=== PATIENT | female | born 1995 | race Caucasian/White ===

== ENCOUNTER → 2016-09-16 | Outpatient (CLI) | payer OTHER ==
[~2016-09-16] MED LIST: ALBU18002 INH; BCPILLS PO; NAPR1TAB9 PO; OXYC-57 PO
--- NOTE | 2016-09-16 15:37 | DIAGNOSTIC IMAGING REPORT ---
CHEST 2 VIEWS ROUTINE CLINICAL HISTORY: Blood-tinged sputum. COMPARISON STUDY: No previous studies for comparison. FINDINGS: Lung volumes are normal. Lungs are clear. There is no pneumothorax or pleural effusion. Cardiac size is normal. Mediastinal contours are normal. There is no evidence of pulmonary edema. There are cholecystectomy clips. IMPRESSION: No acute cardiopulmonary findings. Electronically signed by: Ian Purcell M.D. 09/16/2016 3:35 PM Dictated Date/Time: 09/16/2016 3:35 PM
== END | disposition home or self-care (01) ==
LOC: C.RADBC 15:07
PROVIDERS: ATTEND Internal Medicine Geriatric Medicine
DX: R04.2 Hemoptysis (principal)

== ENCOUNTER → 2017-04-26 | Outpatient (CLI) | payer OTHER ==
[~2017-04-26] MED LIST changes: -OXYC-57 PO
[2017-04-26 15:08] LABS: BASO % 0.2 %; BASO ABS # 0.02 K/uL (0-0.2); COMPLETE YES; EOS % 1.7 %; HEMATOCRIT 40.2 % (37-47); IG% 0.3 %; LYMPH % 25.2 %; LYMPH ABS # 2.38 K/uL (1.2-3.4); MEAN CELL VOLUME 83.6 fL (80-100); MEAN CORPUSCULAR HEMOGLOBIN 29.5 pg (25-34); MEAN CORPUSCULAR HGB CONC 35.3 g/dl (32-36); MEAN PLATELET VOLUME 11.4 fL (7.4-10.4); MONO % 6.3 %; NEUT % 66.3 %; PLATELET COUNT 240 K/uL (130-400); RED BLOOD COUNT 4.81 M/uL (4.2-5.4); WHITE BLOOD COUNT 9.43 K/uL (4.8-10.8)
== END | disposition home or self-care (01) ==
LOC: C.LAB1850 14:24
PROVIDERS: ATTEND Physician Assistant
DX: Z33.1 Pregnant state, incidental (principal)

== ENCOUNTER → 2017-05-21 | Outpatient (CLI) | payer OTHER ==
[2017-05-21 13:10] LABS: BASO % 0.1 %; BASO ABS # 0.01 K/uL (0-0.2); COMPLETE YES; EOS % 1.4 %; HEMATOCRIT 36.7 % (37-47); IG% 0.3 %; LYMPH % 25.4 %; LYMPH ABS # 1.87 K/uL (1.2-3.4); MEAN CELL VOLUME 81.6 fL (80-100); MEAN CORPUSCULAR HEMOGLOBIN 28.9 pg (25-34); MEAN CORPUSCULAR HGB CONC 35.4 g/dl (32-36); MEAN PLATELET VOLUME 11.2 fL (7.4-10.4); MONO % 6.8 %; PLATELET COUNT 230 K/uL (130-400); WHITE BLOOD COUNT 7.36 K/uL (4.8-10.8)
[2017-05-21 17:24] LABS: URINE APPEARANCE CLEAR (CLEAR); URINE BILIRUBIN NEG (NEG); URINE COLOR YELLOW; URINE EPITHELIAL CELL AUTO >30 /lpf (0-5); URINE NITRITE NEG (NEG); URINE SPECIFIC GRAVITY 1.019 (1.000-1.030); UROBILINOGEN NEG (NEG)
[2017-05-21 17:29] LABS: MANUAL MICROSCOPIC REQUIRED? NO; REVIEW REQ? NO
[2017-05-25 02:26] LABS: CHLAMYDIA TRACH RNA*** NOT DETECTED (NOT DETECTED); GC (NEIS GONORRHOEAE)RNA** NOT DETECTED (NOT DETECTED)
== END | disposition home or self-care (01) ==
LOC: C.LAB1850 12:27
PROVIDERS: ATTEND Obstetrics & Gynecology
DX: Z34.01 Encounter for supervision of normal first pregnancy, first trimester (principal)

== ENCOUNTER → 2017-06-28 | Outpatient (CLI) | payer OTHER ==
[2017-06-28 13:55] LABS: GTGD 50 Grams
== END | disposition home or self-care (01) ==
LOC: C.LAB1850 10:22
PROVIDERS: ATTEND Obstetrics & Gynecology
DX: Z34.02 Encounter for supervision of normal first pregnancy, second trimester (principal)

== ENCOUNTER → 2017-07-30 | Outpatient (CLI) | payer OTHER ==
[~2017-07-30] MED LIST changes: +PRENTAB26 PO
== END | disposition home or self-care (01) ==
LOC: C.LAB1850 15:16
PROVIDERS: ATTEND Obstetrics & Gynecology
DX: Z34.02 Encounter for supervision of normal first pregnancy, second trimester (principal)

== ENCOUNTER → 2017-09-20 | Outpatient (CLI) | payer OTHER ==
[~2017-09-20] MED LIST changes: -PRENTAB26 PO
[2017-09-20 12:12] LABS: HEMOGLOBIN 12.8 g/dL (12.0-16.0)
== END | disposition home or self-care (01) ==
LOC: C.LAB1850 09:29
PROVIDERS: ATTEND Obstetrics & Gynecology
DX: Z34.03 Encounter for supervision of normal first pregnancy, third trimester (principal)

== ENCOUNTER → 2017-10-01 | Outpatient (CLI) | payer OTHER | END | disposition home or self-care (01) | LOC: C.LAB1850 07:03 | PROVIDERS: ATTEND Obstetrics & Gynecology | DX: O28.1 Abnormal biochemical finding on antenatal screening of mother (principal) ==

== ENCOUNTER 2017-11-19 21:31 | Outpatient (CLI) | payer OTHER ==
[~2017-11-19] VITALS: Ht 162.6 cm; Wt 180.3 kg
[2017-11-19] MEDS ORDERED: ACETAMINOPHEN 325 MG TAB PO PRN (22:15)
[2017-11-19 22:32] VITALS: Ht 162.6 cm; Wt 180.3 kg
[2017-11-19] MEDS ORDERED: PRENTAB26 PO (22:32)
[2017-11-19 22:41] LABS: BASO % 0.1 %; BASO ABS # 0.01 K/uL (0-0.2); EOS ABS # 0.08 K/uL (0-0.5); HEMATOCRIT 37.9 % (37-47); HEMOGLOBIN 13.3 g/dL (12.0-16.0); IG# 0.02 K/uL (0.00-0.02); LYMPH % 29.2 %; LYMPH ABS # 2.24 K/uL (1.2-3.4); MEAN CELL VOLUME 82.2 fL (80-100); MEAN CORPUSCULAR HEMOGLOBIN 28.9 pg (25-34); MEAN CORPUSCULAR HGB CONC 35.1 g/dl (32-36); MEAN PLATELET VOLUME 11.4 fL (7.4-10.4); MONO % 7.4 %; MONO ABS # 0.57 K/uL (0.11-0.59); NEUT ABS # 4.74 K/uL (1.4-6.5); PLATELET COUNT 138 K/uL (130-400); RED CELL DISTRIBUTION WIDTH CV 14.5 % (11.5-14.5); WHITE BLOOD COUNT 7.66 K/uL (4.8-10.8)
[2017-11-19 22:59] LABS: ALBUMIN 2.6 gm/dl (3.4-5.0); CALCIUM 9.3 mg/dl (8.5-10.1); CREATININE 0.7 mg/dl (0.60-1.20); POTASSIUM 4.1 mmol/L (3.5-5.1)
[2017-11-19 23:01] LABS: TOTAL PROTEIN 6.2 gm/dl (6.4-8.2)
--- NOTE | 2017-12-02 08:14 | EDITING REQUIRED CODING QUERY ---
DIAGNOSIS NEEDED To promote full compliance with coding requirements relating to patient care, physician participation is requested in all cases of coal hiker uncertainty. Please assist us with the question(s) below: Coding Question: The patient received care in labor and delivery on 11/19/17 as noted within the record. Please document the diagnosis that is being addressed by the medication/treatment. Provider Response: DIAGNOSIS: 36 WEEKS IUP, GESTATIONAL HYPERTENSION WEEKS OF GESTATION: 36 Thank you for your assistance, Brenda Brown - [employer]
== END 2017-11-19 23:25 | disposition home or self-care (01) ==
LOC: C.OPB 21:31 → C.LD 21:32 → C.OPB 23:25
PROVIDERS: ATTEND Obstetrics & Gynecology
DX: O13.3 Gestational [pregnancy-induced] hypertension without significant proteinuria, third trimester (principal); Z3A.36 36 weeks gestation of pregnancy

== ENCOUNTER → 2017-11-23 | Outpatient (CLI) | payer OTHER ==
[~2017-11-23] MED LIST changes: -BCPILLS PO; -NAPR1TAB9 PO; +PRENTAB26 PO
== END | disposition home or self-care (01) ==
LOC: C.LABSPEC 11:04
PROVIDERS: ATTEND Obstetrics & Gynecology
DX: Z34.03 Encounter for supervision of normal first pregnancy, third trimester (principal)

== ENCOUNTER 2017-11-24 10:21 | Outpatient (CLI) | payer OTHER ==
[~2017-11-24] VITALS: Ht 162.6 cm; Wt 69.5 kg
[2017-11-24 11:04] LABS: MEAN CORPUSCULAR HGB CONC 35.5 g/dl (32-36); MEAN PLATELET VOLUME 12.9 fL (7.4-10.4); PLATELET COUNT 147 K/uL (130-400)
[2017-11-24 11:20] VITALS: Ht 162.6 cm; Wt 69.5 kg
[2017-11-24 11:35] LABS: ALBUMIN 2.6 gm/dl (3.4-5.0); CREATININE 0.68 mg/dl (0.60-1.20); TOTAL PROTEIN 6.8 gm/dl (6.4-8.2)
[2017-11-24 11:47] LABS: HEMATOCRIT 38.6 % (37-47); HEMOGLOBIN 13.7 g/dL (12.0-16.0); MEAN CELL VOLUME 82.7 fL (80-100); MEAN CORPUSCULAR HEMOGLOBIN 29.3 pg (25-34); RED CELL DISTRIBUTION WIDTH CV 14.6 % (11.5-14.5); RED CELL DISTRIBUTION WIDTH SD 43.3 fL (36.4-46.3); WHITE BLOOD COUNT 7.82 K/uL (4.8-10.8)
[2017-11-24 12:21] LABS: POTASSIUM 4.3 mmol/L (3.5-5.1)
== END 2017-11-24 13:35 | disposition home or self-care (01) ==
LOC: C.OPB 10:21 → C.LD 10:21 → C.OPB 13:35
PROVIDERS: ATTEND Obstetrics & Gynecology
DX: O13.3 Gestational [pregnancy-induced] hypertension without significant proteinuria, third trimester (principal); O99.513 Diseases of the respiratory system complicating pregnancy, third trimester; J45.909 Unspecified asthma, uncomplicated; Z3A.36 36 weeks gestation of pregnancy; Z90.49 Acquired absence of other specified parts of digestive tract

== ENCOUNTER 2017-11-26 07:32 | Inpatient (IN) | payer OTHER ==
[~2017-11-26] VITALS: Ht 162.6 cm; Wt 82.7 kg
[2017-11-26] MEDS ORDERED: LACTATED RINGER'S 1000ML 1,000 ML IV PRN (08:22)
[2017-11-26] MEDS ORDERED: LACTATED RINGER'S 1000ML 500 ML IV PRN ×2 (08:22→17:35)
[2017-11-26] MEDS ORDERED: OXYTOCIN 30 UNITS/500ML NSS IV PRN ×2 (08:30→21:00)
[2017-11-26 08:44] VITALS: Ht 162.6 cm; Wt 82.7 kg
[2017-11-26 08:46] LABS: HEMATOCRIT 40.4 % (37-47); HEMOGLOBIN 14.6 g/dL (12.0-16.0); MEAN CELL VOLUME 81.9 fL (80-100); MEAN CORPUSCULAR HEMOGLOBIN 29.6 pg (25-34); MEAN CORPUSCULAR HGB CONC 36.1 g/dl (32-36); PLATELET COUNT 168 K/uL (130-400); RED CELL DISTRIBUTION WIDTH CV 14.6 % (11.5-14.5); RED CELL DISTRIBUTION WIDTH SD 43.3 fL (36.4-46.3); WHITE BLOOD COUNT 8.14 K/uL (4.8-10.8)
[2017-11-26] MEDS: LACTATED RINGER'S 1000ML 1,000 ML IV SCH ×2 (08:59→17:19)
[2017-11-26] MEDS ORDERED: BUPIVACAINE 0.25% 30 ML VIAL ONE (15:29)
[2017-11-26] MEDS ORDERED: EpHEDrine SULFATE INJ 50 MG/ML AMP ONE (15:29)
[2017-11-26] MEDS ORDERED: FENTANYL CITRATE INJ 50 MCG/1 ML 2 ML VIAL ONE (15:29)
[2017-11-26] MEDS ORDERED: FENTANYL 2MCG/ML ROPIV 1.25MG/ML 100ML BAG EPI ONE (15:30)
[2017-11-26] MEDS ORDERED: NALOXONE HCL INJ 1 MG in SODIUM CHLORIDE 0.9% 1000ML 1,000 ML IV PRN (17:35)
[2017-11-26] MEDS ORDERED: DiphenhydrAMINE HCL 50 MG/ML VIAL IV PRN (17:45)
[2017-11-26] MEDS ORDERED: ONDANSETRON INJ 2 MG/ML 2 ML VIAL IV PRN (17:45)
[2017-11-26] MEDS ORDERED: NALBUPHINE HCL INJ 10 MG/ML AMP IV PRN (17:45)
[2017-11-26] MEDS ORDERED: FENTANYL 2MCG/ML ROPIV 1.25MG/ML 100ML BAG EPI PRN (17:45)
[2017-11-26] MEDS ORDERED: NALOXONE HCL INJ 0.4 MG/1 ML VIAL/CARP IV PRN (17:45)
[2017-11-26] MEDS ORDERED: EpHEDrine SULFATE INJ 50 MG/ML AMP IV PRN (17:45)
[2017-11-26] MEDS ORDERED: LACTATED RINGER'S 1000ML 1,000 ML IV SCH (20:54)
[2017-11-26] MEDS ORDERED: DIPHTHERIA/TETANUS/PERTUSSIS 0.5 ML SYR/VIAL IM. ONE (21:00)
[2017-11-26] MEDS ORDERED: BENZOCAINE 20% AER SPR 82.5 GM CAN EXT PRN (21:00)
[2017-11-26] MEDS ORDERED: OXYCODONE/ACETAMINOPHEN 5-325 TAB PO PRN (21:00)
[2017-11-26] MEDS ORDERED: HYDROCORTISONE ACETATE 25 MG SUPP PR PRN (21:00)
[2017-11-26] MEDS ORDERED: LANOLIN OINT EXT PRN (21:00)
[2017-11-26] MEDS ORDERED: ACETAMINOPHEN 325 MG TAB PO PRN (21:00)
[2017-11-26] MEDS ORDERED: IBUPROFEN 600 MG TAB PO PRN (21:00)
[2017-11-26] MEDS ORDERED: SUPERCREAM 0.870 % 15GM JAR EXT PRN (21:00)
--- NOTE | 2017-11-26 21:29 | DELIVERY SUMMARY ---
DATE OF OPERATION: 11/26/2017 VAGINAL DELIVERY NOTE. PREOPERATIVE DIAGNOSES: 1. Mora intrauterine at 37 weeks. 2. Gestational hypertension. 3. Medically indicated induction of labor. 4. Group B streptococcal negative. POSTOPERATIVE DIAGNOSES: 1. Mora intrauterine at 37 weeks. 2. Gestational hypertension. 3. Medically indicated induction of labor. 4. Group B streptococcal negative. PROCEDURE: Spontaneous vaginal delivery. SURGEON: Dr. Elliott. ASSIST: None. ESTIMATED BLOOD LOSS: 250. COMPLICATIONS: None. DISPOSITION: Stable in labor and delivery. DESCRIPTION OF PROCEDURE: Rob is a 21-year-old 1, para 0 who presented at 37 weeks for a planned induction of labor due to a diagnosis of gestational hypertension without significant proteinuria. Patient was admitted at already 2-3 cm and was started on Pitocin. She was provided with an epidural for pain management and artificial rupture of membrane was performed. The patient became completely dilated and labored down. She then began her second stage of labor at my request, and I was soon called for delivery. I quickly prepped and positioned the patient and through the next several pushes she was able to bring the head to delivery. Of note, through the last few minutes of the patient's second stage, the heart tones were somewhat low, ranging 60-90; however, there was good variability, and the patient was so close to delivery that I did not feel this required any intervention. There was a loose nuchal cord that was reduced after delivery of the head. The shoulders and remainder of the delivered promptly thereafter. The vigorous infant was placed on the maternal abdomen where the cord was doubly clamped and cut by the father of the baby. The placenta delivered spontaneously and was intact with the 3-vessel cord. Cervix, vagina and perineum were examined and there were no lacerations requiring repair. At the present time, the fundus is firm, lochia is minimal and mother and are both in good condition, having tolerated delivery well. I attest to the content of the Intraoperative Record and any orders documented therein. Any exceptions are noted below. MTDD
--- NOTE | 2017-11-26 21:29 | Anesthesia Procedure Note ---
Anesthesia Epidural Removal Nt Date & Time Nov 26, 2017 at 21:29 Vital Signs Pain Intensity: 2.0 Notes Mental Status: alert / awake / arousable, participated in evaluation Nausea / Vomiting: adequately controlled Pain: adequately controlled Airway Patency, RR, SpO2: stable & adequate BP & HR: stable & adequate Hydration State: stable & adequate Neuraxial Anesthesia: was administered, sensory block is resolving Anesthetic Complications: no major complications apparent, pt satisfied with anesthetic care Epidural: removed without complications, with tip intact
[2017-11-27] VITALS (7 sets, daily range): BP systolic 116–134; BP diastolic 78–86; PULSE 91–110; TEMP 36.5–36.8; O2SAT 93–97
--- NOTE | 2017-11-27 05:43 | Progress Note ---
Subjective Nov 27, 2017. Subjective conversation w/ patient, physical exam, chart review, lab review, review of studies Ambulation: ambulating normally Voiding: no voiding problems Passing Gas: Yes Diet Tolerance: Regular Diet Lochia: Moderate Feeding Type: Breast Feeding Review of Systems Constitutional: No fever, No chills Respiratory: No cough, No shortness of breath Cardiac: No chest pain, No palpitations Abdomen: No pain, No nausea, No vomiting Female : No dysuria Objective Vital Signs Date Time Temp Pulse Resp B/P (MAP) Pulse Ox O2 Delivery O2 Flow Rate FiO2 11/27/17 00:00 36.8 106 18 130/86 11/27/17 00:00 Room Air Physical Exam General Appearance: WELL-APPEARING, WD/WN, NO APPARENT DISTRESS Respiratory/Chest: lungs clear, no accessory muscle use Cardiovascular: regular rate, rhythm, no murmur Abdomen: non tender, soft Fundus: Firm Extremities: non-tender, normal inspection Laboratory Results Last 24 Hours Test 11/26/17 08:34 11/27/17 04:44 White Blood Count 8.14 K/uL Red Blood Count 4.93 M/uL Hemoglobin 14.6 g/dL Hematocrit 40.4 % Mean Corpuscular Volume 81.9 fL Mean Corpuscular Hemoglobin 29.6 pg Mean Corpuscular Hemoglobin Concent 36.1 g/dl RDW Standard Deviation 43.3 fL RDW Coefficient of Variation 14.6 % Platelet Count 168 K/uL Mean Platelet Volume 12.0 fL Assessment and Plan Problem List Medical Problems: (1) Abdominal pain Status: Acute (2) RUQ abdominal pain Status: Acute Post- Day#: 1 Continue Routine Care: 21, F, , A+/RI/GBS-, PPD1, h/o GHTN. Vitals reviewed, WNL. Hgb on admission 14.6, pending this am. No signs or sx of anemia. Reported nausea and decreased appetite following delivery. Sx have since improved, appetite has returned. Patient is doing well clinically. 1. Recovery from vaginal delivery--ambulate, support BF, monitor lochia, control pain Resident Physician Supervision Note: I interviewed and examined the patient. Discussed with Dr. Galeano and agree with findings and plan as documented in the note. Any exceptions or clarifications are listed here: [None] Documented By: Shana Elliott
--- NOTE | 2017-11-27 05:44 | Discharge Instructions ---
Discharge Instructions Date of Service Nov 27, 2017. Admission Reason for Admission: Induction Discharge Discharge Diagnosis / Problem: vaginal delivery Discharge Goals Goal(s): Routine recovery after delivery Medications Continue Dispensed Medications: supercream, dermaplast, tucks, lansinoh Activity Recommendations Activity Limitations: per Instructions/Follow-up section . Instructions / Follow-Up Instructions / Follow-Up ACTIVITY RECOMMENDATIONS: * Gradual return to full activity over the next 2-3 weeks. * No lifting - nothing heavier than baby over the next 2-3 weeks. * Do not engage in vigorous exercise, sexual activity or sports until cleared by your physician. * Do not drive or operate any motorized equipment until cleared by your physician. * You may shower/bathe daily. MEDICATIONS: For discomfort or pain, you may use Acetaminophen (Tylenol), Ibuprofen (Advil), or Naproxen (Aleve) following the package directions. For constipation you may use Colace following the package directions. BREAST CARE: If you are not breast feeding: * Wear a supportive bra 24 hours a day for one to two weeks. * Avoid stimulating your breasts and nipples as much as possible during the first few weeks after delivery. * When taking a shower, have the warm water hit your back, not breasts. * When your breasts feel full, apply ice packs. Usually three to four times a day helps ease the discomfort. * Take a mild pain medication (Tylenol / Motrin) when you are uncomfortable. If breast feeding: * Use breast milk to lubricate nipples. Lansinoh cream may be used for sore nipples. You do not need to remove cream prior to breast feeding. If using a different brand of cream, check the label for directions regarding removal of cream prior to nursing. * Wear a supportive bra. * If having problems with breasts or breast feeding, call a product safety consultant or your health care provider. EPISIOTOMY CARE: After delivery, if you have an episiotomy (stitches), the following steps will ease discomfort and aid healing. * For the first 24 hours after delivery, place ice packs next to your episiotomy to help reduce swelling. * After the first 24 hour-period, sitz baths, either portable or in the tub, are suggested. A shower with a shower arm sprayed over the episiotomy may be comforting. * Jen care should be done after each voiding and bowel movement. Squirt warm water from a plastic bottle over the perineum (region of the body between the anus and urinary opening) and pat dry. * Use Dermoplast to ease discomfort. Shake container. [place] directly over the episiotomy. Place a Tucks on a clean sanitary pad next to your episiotomy. SPECIAL CARE INSTRUCTIONS: When you are discharged from the hospital, it is important for you to follow the instructions listed below: * During the first week at home, you should be able to care for yourself and your baby. In addition, the usual light household activities are encouraged. * Limit your activities to the way you feel. Do not try to clean the house or move furniture. Be sensible. * If you actively engage in sports and have done so up until the time of your delivery, you may resume these activities as soon as you feel able. This may take up to one month or even longer. Use good judgment. * Continue to take your vitamins for at least six weeks after the of your baby. * Your diet need not be limited unless you were on a special diet before your delivery. Breast-feeding mothers need around 2500 calories per day and at least 64-80 ounces of fluid per day (8 to 10 glasses). * You should eat foods from the four major food groups. Crash diets or fad diets are to be avoided. Eating lean meats, fresh fruits and vegetables, low-fat dairy products, high fiber foods and a regular exercise program, will help you get back to your pre- weight without putting your health at risk. * Constipation is sometimes a problem after delivery. Take a mild laxative as needed. If breast feeding, Milk of Magnesia is acceptable to use. You may use a suppository or Fleets enema if no episiotomy. * A daily shower or tub bath is suggested. Be sure to thoroughly and gently dry the perineum. * A bloody vaginal discharge will usually continue until around four weeks post . A small amount of bleeding may continue for as long as six weeks. Vaginal discharge changes from the bright red bleeding after delivery to pink then brownish and finally yellowish-pink before becoming white and disappearing. * Bleeding may increase with activity. Your first period may come in 4-8 weeks. If you are breast feeding, your period may be delayed even longer. * [place] (sex) can begin whenever both you and your partner feel comfortable and do not have any form of genital infection. It is recommended that you wait at least six weeks for internal and external healing to occur. If you have questions, please talk to your health care practitioner. A condom should be used to prevent infection and . * Foreplay, gentle intercourse and lubrication is very important the first several times to prevent pain. A water-based lubricant such as K-Y jelly or Astroglide may be used. * If you have RH negative blood and your baby is RH positive, you will receive RHOGAM by injection prior to discharge. The nurse will give you a card to keep with you that has the date and place that you received RHOGAM after delivery. * During your care, you had a Rubella screen done to check for the presence of rubella antibodies in your blood. If your test was negative, you will receive a Rubella vaccine prior to discharge. This vaccine may cause a fever, soreness at the injection site and flu-like symptoms. If these symptoms persist, notify your health care practitioner. is not advised for one month after a Rubella vaccine. * Verbalizes understanding of car seat law as reviewed with patient nursing. * Car Seat hand-out given and reviewed with patient by nursing. * Shaken baby information reviewed with patient by nursing. Call you doctor if: * Heavy bleeding (saturating several pads an hour) or passing clots the size of your fist. * A fever >101 degrees F (38.3 degrees C) on two occasions four hours apart and /or chills. * Unusual pain in the pelvic or vaginal areas. * "Baby Blues" lasting longer than two weeks. If you have any questions or concerns, call your health care practitioner at . FOLLOW UP VISIT: * Please call the office at to schedule a 6 week examination. It is important you keep this appointment. It is important for you to make arrangements for either yearly or twice yearly check-ups thereafter. Current Hospital Diet Patient's current hospital diet: Regular OB Diet Discharge Diet Recommended Diet: Regular Diet, Regular OB Diet Pending Studies Studies pending at discharge: no Medical Emergencies . Who to Call and When: Medical Emergencies: If at any time you feel your situation is an emergency, please call [phone] immediately. . Non-Emergent Contact Non-Emergency issues call your: Primary Care Provider, Cancer Genetic Counselor . . "Provider Documentation" section prepared by Osmar Galeano. .
[2017-11-27 06:33] LABS: HEMOGLOBIN 12.6 g/dL (12.0-16.0)
[2017-11-27] MEDS: DOCUSATE SODIUM 100 MG CAP PO SCH ×2 (07:53→19:56)
[2017-11-27] MEDS: PRENATAL VITAMIN TAB PO SCH (07:54)
[2017-11-28 07:30] VITALS: BP 123/78; PULSE 98; TEMP 36.7; O2SAT 98
[2017-11-28] MEDS: DOCUSATE SODIUM 100 MG CAP PO SCH ×2 (08:21→20:00)
[2017-11-28] MEDS: PRENATAL VITAMIN TAB PO SCH (08:21)
--- NOTE | 2017-11-28 09:22 | Progress Note ---
Subjective Nov 28, 2017. Subjective conversation w/ patient, physical exam Ambulation: ambulating normally Voiding: no voiding problems Diet Tolerance: Regular Diet Lochia: Small Feeding Type: Breast Feeding Pain: no pain issues Objective Vital Signs Date Time Temp Pulse Resp B/P (MAP) Pulse Ox O2 Delivery O2 Flow Rate FiO2 11/28/17 07:30 98 Room Air 11/28/17 07:30 36.7 98 16 123/78 (93) 98 Room Air 11/27/17 23:15 Room Air 11/27/17 23:15 36.5 109 20 134/79 (97) 93 Room Air 11/27/17 21:00 36.6 110 18 131/82 (98) 97 Room Air 11/27/17 15:30 Room Air 11/27/17 15:30 36.5 101 16 128/82 (97) Room Air 11/27/17 12:30 36.5 102 16 121/78 (92) Room Air Physical Exam General Appearance: WELL-APPEARING, WD/WN, NO APPARENT DISTRESS Respiratory/Chest: lungs clear Cardiovascular: regular rate, rhythm Abdomen: non tender, soft Fundus: Firm, Relation to Umbilicus (2 down) Extremities: non-tender Assessment and Plan Problem List Medical Problems: (1) Abdominal pain Status: Acute (2) RUQ abdominal pain Status: Acute Post- Day#: 2 Continue Routine Care: stable, for d/c home, instructions reviewed. f/u 6wks pp check. bps look normal. breast feeding.
[2017-11-28 17:29] VITALS: BP 140/83; PULSE 94; TEMP 37
[2017-11-28 20:00] VITALS: BP_DIAS 83; PULSE 94; TEMP 37
== END 2017-11-28 22:10 | disposition home or self-care (01) | DRG 775 ==
LOC: C.LD 07:32 → C.OBG 23:18
PROVIDERS: ADMIT Obstetrics & Gynecology; ATTEND Obstetrics & Gynecology
PROC: 10E0XZZ Delivery of Products of Conception, External Approach (ICD-10-PCS; principal; 2017-11-26)
PROC: 3E033VJ Introduction of Other Hormone into Peripheral Vein, Percutaneous Approach (ICD-10-PCS; principal; 2017-11-26)
DX: O13.4 Gestational [pregnancy-induced] hypertension without significant proteinuria, complicating childbirth (principal); O76 Abnormality in fetal heart rate and rhythm complicating labor and delivery; O69.81X0 Labor and delivery complicated by cord around neck, without compression, not applicable or unspecified; Z3A.37 37 weeks gestation of pregnancy; Z37.0 Single live birth